=== PATIENT | female | born 1985 | race Caucasian/White ===

== ENCOUNTER 2020-10-03 11:34 | Outpatient (REF) | payer OTHER, SELFPAY ==
[2020-10-05 20:46] LABS: HPV mRNA E6/E7 rflx Not Detected (Not Detected)
== END 2020-10-03 11:35 | disposition home or self-care (01) ==
LOC: HO.LNP 11:34
PROVIDERS: Visit Provider Internal Medicine
DX: Z12.4 Encounter for screening for malignant neoplasm of cervix (principal); Z11.51 Encounter for screening for human papillomavirus (HPV)
CPT/HCPCS: 87624; 88142

== ENCOUNTER 2020-10-07 07:01 | Outpatient (REF) | payer OTHER, SELFPAY ==
[2020-10-07 11:18] LABS: MANUAL DIFF FLAG NO
[2020-10-07 11:29] LABS: Basophils Absolute Auto 0.1 X10*3/uL (0.0-0.2); Eosinophils Absolute Auto 0.2 X10*3/uL (0.0-0.4); Eosinophils Percent Auto 2.5 % (0-4); Hemoglobin 10.6 g/dl (12.0-16.0); Imm Gran Abs Auto 0.03 X10*3/uL (0.00-0.03); Imm Gran Pct Auto 0.4 % (0.0-0.4); Lymphocytes Absolute Auto 2.4 X10*3/uL (1.2-4.9); Lymphocytes Percent Auto 33.1 % (20-40); Mean Corpuscular HGB Conc 30.3 g/dl (31.0-35.0); Mean Corpuscular Volume 79.4 fL (80-98); Mean Platelet Volume 8.2 fL (9.4-12.3); Monocytes Absolute Auto 0.5 X10*3/uL (0.1-1.2); Monocytes Percent Auto 7.4 % (2-11); Neutrophils Percent Auto 55.6 % (45-73); Platelet Count 427 X10*3/uL (160-400); Red Blood Count 4.41 X10*6/uL (4.20-5.50); Red Cell Distribution Width 17.2 % (11.0-16.0); White Blood Count 7.1 X10*3/uL (4.8-10.8)
[2020-10-07 12:05] LABS: Cholesterol 174 mg/dL; Glucose Fasting 100 mg/dL (60-99); HDL Cholesterol 66 mg/dL; LDL Cholesterol Calculated 91 mg/dl; Triglycerides 86 mg/dL
[2020-10-07 12:07] LABS: TSH reflex Free T4 5.03 uIU/mL (0.32-4.0)
[2020-10-07 12:41] LABS: Free T4 (Free Thyroxine) 0.67 ng/dL (0.71-1.85)
== END 2020-10-07 07:02 | disposition home or self-care (01) ==
LOC: HO.HMGCLDS 07:01
PROVIDERS: PCP Internal Medicine; Visit Provider Internal Medicine
DX: Z00.00 Encounter for general adult medical examination without abnormal findings (principal); Z83.49 Family history of other endocrine, nutritional and metabolic diseases
CPT/HCPCS: 36415; 80061; 82947; 84439; 84443; 85025

== ENCOUNTER 2021-03-08 13:23 | Outpatient (REF) | payer OTHER, SELFPAY ==
[2021-03-08 16:33] LABS: MANUAL DIFF FLAG NO
[2021-03-08 16:45] LABS: Basophils Absolute Auto 0.1 X10*3/uL (0.0-0.2); Basophils Percent Auto 0.6 % (0-2); Eosinophils Absolute Auto 0.2 X10*3/uL (0.0-0.4); Eosinophils Percent Auto 1.8 % (0-4); Hematocrit 34.9 % (37-47); Hemoglobin 11.6 g/dl (12.0-16.0); Imm Gran Abs Auto 0.03 X10*3/uL (0.00-0.03); Imm Gran Pct Auto 0.3 % (0.0-0.4); Lymphocytes Absolute Auto 2.1 X10*3/uL (1.2-4.9); Lymphocytes Percent Auto 24.7 % (20-40); Mean Corpuscular HGB Conc 33.2 g/dl (31.0-35.0); Mean Corpuscular Hemoglobin 28.7 pg (27.0-33.0); Mean Corpuscular Volume 86.4 fL (80-98); Mean Platelet Volume 8.3 fL (9.4-12.3); Monocytes Absolute Auto 0.7 X10*3/uL (0.1-1.2); Monocytes Percent Auto 7.6 % (2-11); Neutrophils Absolute Auto 5.6 X10*3/uL (2.0-8.3); Platelet Count 391 X10*3/uL (160-400); Red Blood Count 4.04 X10*6/uL (4.20-5.50); Red Cell Distribution Width 14.5 % (11.0-16.0); White Blood Count 8.7 X10*3/uL (4.8-10.8)
[2021-03-08 17:06] LABS: Iron 49 mcg/dL (30-160); Percent Iron Saturation 13 % (15-50); Total Iron Binding Capacity 391 mcg/dL (228-428); Unsaturated Iron Binding 342 ug/dL
[2021-03-08 17:29] LABS: Ferritin 30 ng/mL (10-122); Free T4 (Free Thyroxine) 0.76 ng/dL (0.71-1.85); Thyroid Stimulating Hormone 6.29 uIU/mL (0.32-4.0)
[2021-03-09 17:35] LABS: Thyroid Peroxidase Antibodies 735 IU/mL (<9)
== END 2021-03-08 13:24 | disposition home or self-care (01) ==
LOC: HO.HMGCLDS 13:23
PROVIDERS: PCP Internal Medicine; Visit Provider Internal Medicine
DX: D50.9 Iron deficiency anemia, unspecified (principal); E03.9 Hypothyroidism, unspecified
CPT/HCPCS: 36415; 82728; 83540; 84439; 84443; 85025; 86376

== ENCOUNTER 2021-07-24 11:56 | Outpatient (REF) | payer OTHER, SELFPAY ==
[2021-07-24 13:41] LABS: MANUAL DIFF FLAG NO
[2021-07-24 13:45] LABS: Basophils Absolute Auto 0.1 X10*3/uL (0.0-0.2); Basophils Percent Auto 0.7 % (0-2); Eosinophils Absolute Auto 0.2 X10*3/uL (0.0-0.4); Eosinophils Percent Auto 3.1 % (0-4); Hematocrit 36.1 % (37.0-47.0); Hemoglobin 11.7 g/dl (12.0-16.0); Imm Gran Abs Auto 0.02 X10*3/uL (0.00-0.03); Imm Gran Pct Auto 0.3 % (0.0-0.4); Lymphocytes Absolute Auto 2.4 X10*3/uL (1.2-4.9); Lymphocytes Percent Auto 35.6 % (20-40); Mean Corpuscular HGB Conc 32.4 g/dl (31.0-35.0); Mean Corpuscular Hemoglobin 27.7 pg (27.0-33.0); Mean Corpuscular Volume 85.3 fL (80.0-98.0); Monocytes Absolute Auto 0.6 X10*3/uL (0.1-1.2); Neutrophils Absolute Auto 3.6 x10*3/uL (2.0-8.3); Neutrophils Percent Auto 52.3 % (45-73); Platelet Count 399 X10*3/uL (160-400); Red Blood Count 4.23 X10*6/uL (4.20-5.50); Red Cell Distribution Width 14.5 % (11.0-16.0); White Blood Count 6.9 X10*3/uL (4.8-10.8)
[2021-07-24 14:04] LABS: Iron 63 mcg/dL (30-160); Percent Iron Saturation 14 % (15-50); Total Iron Binding Capacity 436 mcg/dL (228-428); Unsaturated Iron Binding 373 ug/dL
[2021-07-24 14:25] LABS: Free T4 (Free Thyroxine) 0.84 ng/dL (0.71-1.85); Thyroid Stimulating Hormone 3.73 uIU/mL (0.32-4.0)
[2021-07-26 07:12] LABS: Thyroid Peroxidase Antibodies >900 IU/mL (<9)
== END 2021-07-24 11:57 | disposition home or self-care (01) ==
LOC: HO.HMGCLDS 11:56
PROVIDERS: Visit Provider Internal Medicine
DX: D50.9 Iron deficiency anemia, unspecified (principal); E03.9 Hypothyroidism, unspecified
CPT/HCPCS: 36415; 83540; 84439; 84443; 85025; 86376

== ENCOUNTER 2022-12-18 08:36 | Outpatient (REF) | payer OTHER, SELFPAY ==
[2022-12-18 11:27] LABS: MANUAL DIFF FLAG NO
[2022-12-18 11:39] LABS: Basophils Absolute Auto 0.1 X10*3/uL (0.0-0.2); Basophils Percent Auto 1.1 % (0-2); Eosinophils Absolute Auto 0.2 X10*3/uL (0.0-0.4); Eosinophils Percent Auto 3.6 % (0-4); Hematocrit 35.9 % (37.0-47.0); Hemoglobin 11.1 g/dl (12.0-16.0); Imm Gran Abs Auto 0.01 X10*3/uL (0.00-0.03); Imm Gran Pct Auto 0.2 % (0.0-0.4); Lymphocytes Percent Auto 30.9 % (20-40); Mean Corpuscular HGB Conc 30.9 g/dl (31.0-35.0); Mean Corpuscular Hemoglobin 24.7 pg (27.0-33.0); Mean Corpuscular Volume 79.8 fL (80.0-98.0); Monocytes Absolute Auto 0.4 X10*3/uL (0.1-1.2); Monocytes Percent Auto 6.5 % (2-11); Neutrophils Absolute Auto 3.8 x10*3/uL (2.0-8.3); Neutrophils Percent Auto 57.7 % (45-73); Platelet Count 432 X10*3/uL (160-400); Red Cell Distribution Width 15.9 % (11.0-16.0); White Blood Count 6.6 X10*3/uL (4.8-10.8)
[2022-12-18 12:08] LABS: Cholesterol 190 mg/dL; Glucose Fasting 95 mg/dL (60-99); HDL Cholesterol 57 mg/dL; Iron 34 mcg/dL (30-160); LDL Cholesterol Calculated 114 mg/dl; Percent Iron Saturation 9 % (15-50); Total Iron Binding Capacity 394 mcg/dL (228-428); Triglycerides 96 mg/dL; Unsaturated Iron Binding 360 ug/dL
[2022-12-21 11:34] LABS: Free T4 (Free Thyroxine) 0.84 ng/dL (0.71-1.85); Thyroid Stimulating Hormone 6.08 uIU/mL (0.32-4.0)
== END 2022-12-18 08:37 | disposition home or self-care (01) ==
LOC: HO.HMGCLDS 08:36
PROVIDERS: PCP Internal Medicine; Visit Provider Internal Medicine
DX: Z00.01 Encounter for general adult medical examination with abnormal findings (principal); D50.9 Iron deficiency anemia, unspecified; E03.9 Hypothyroidism, unspecified
CPT/HCPCS: 36415; 80061; 82947; 83540; 84439; 84443; 85025

== ENCOUNTER 2023-07-15 07:36 | Outpatient (REF) | payer OTHER, SELFPAY ==
[2023-07-15 11:41] LABS: MANUAL DIFF FLAG NO
[2023-07-15 11:56] LABS: Basophils Absolute Auto 0.1 X10*3/uL (0.0-0.2); Eosinophils Absolute Auto 0.3 X10*3/uL (0.0-0.4); Eosinophils Percent Auto 4.5 % (0-4); Hematocrit 35.7 % (37.0-47.0); Imm Gran Abs Auto 0.02 X10*3/uL (0.00-0.03); Imm Gran Pct Auto 0.3 % (0.0-0.4); Lymphocytes Absolute Auto 2.6 X10*3/uL (1.2-4.9); Lymphocytes Percent Auto 35.2 % (20-40); Mean Corpuscular HGB Conc 30.8 g/dl (31.0-35.0); Mean Corpuscular Hemoglobin 25.5 pg (27.0-33.0); Mean Corpuscular Volume 82.6 fL (80.0-98.0); Monocytes Absolute Auto 0.5 X10*3/uL (0.1-1.2); Monocytes Percent Auto 6.7 % (2-11); Neutrophils Absolute Auto 3.8 x10*3/uL (2.0-8.3); Neutrophils Percent Auto 52.3 % (45-73); Platelet Count 449 X10*3/uL (160-400); Red Blood Count 4.32 X10*6/uL (4.20-5.50); Red Cell Distribution Width 16.5 % (11.0-16.0); White Blood Count 7.3 X10*3/uL (4.8-10.8)
[2023-07-15 12:13] LABS: Iron 39 mcg/dL (30-160); Percent Iron Saturation 10 % (15-50); Total Iron Binding Capacity 381 mcg/dL (228-428); Unsaturated Iron Binding 342 ug/dL
[2023-07-15 12:33] LABS: Free T4 (Free Thyroxine) 0.72 ng/dL (0.71-1.85); Thyroid Stimulating Hormone 7.44 uIU/mL (0.32-4.0)
== END 2023-07-15 07:37 | disposition home or self-care (01) ==
LOC: HO.HMGCLDS 07:36
PROVIDERS: PCP Internal Medicine; Visit Provider Internal Medicine
DX: E03.9 Hypothyroidism, unspecified (principal); D50.9 Iron deficiency anemia, unspecified
CPT/HCPCS: 36415; 83540; 84439; 84443; 85025

== ENCOUNTER 2023-09-07 09:51 | Outpatient (AMB) | payer OTHER, SELFPAY ==
[2023-09-07 10:19] VITALS: BP 112/74; PULSE 120; TEMP 36.6; O2SAT 98; BMI 25.4
--- NOTE | 2023-09-07 10:19 | AM.OFFWIN_ITS ---
Intake Vital Signs 09/07/23 10:19 Height 5 ft 4 in Weight 148 lb BMI 25.4 BP 112/74 Blood Pressure Location Lt brachial Position Sitting Pulse 120 H Pulse Source Pulse Oximeter Temp 97.9 F Temp Source Oral Pulse Oximetry (%) 98 Oxygen Delivery Method Room Air Intake Visit Reasons: EP Sciatic pain Intake Note: pt is here for sciatic pain Patient Tobacco Use Status: Former Tobacco user Allergies amoxicillin Adverse Reaction (Verified 09/07/23 10:21) Rash Do you need a note to return to daycare/school/sports/work: Yes HPI HPI Comments History of Present Illness Details 38-year-old female history of sciatica u nder the treatment of chiropractor that presents for flare. Patient was recently seen and treated by a chiropractor 3 days prior and recommended that she receive a Medrol Dosepak to help with her symptom flares. [facility] Medical History (Updated 09/07/23 @ 16:11 by ADI Carmona) Generalized anxiety disorder History of herniated intervertebral disc Annual physical exam Rash and nonspecific skin eruption Hypochromic microcytic anemia Acquired hypothyroidism Family history of thyroid disease in mother Surgical History No pertinent past surgical history Family History Father History of hypertension Mother History of hypertension Hx of thyroid disease Mental health disorder Social History Housing: House Alcohol intake: current Patient Tobacco Use Status: Former Tobacco user Years Smoked: 2 yrs e-Cigarette/Vaping Use: Never Used Current occupational status: employed Cognitive needs: No Hearing needs: No Vision needs: No Physical Exam Vital Signs: Last Vital Signs Temp 97.9 F 09/07/23 10:19 Pulse 120 H 09/07/23 10:19 BP 112/74 09/07/23 10:19 Pulse Ox 98 09/07/23 10:19 Oxygen Delivery Method Room Air 09/07/23 10:19 BMI result Body Mass Index 25.4 Const General: cooperative, healthy appearing, no acute distress and alert Orientation/consciousness: patient oriented x3 Limitations: no limitations HEENT Head: Yes normal to inspection Ears: hearing grossly normal bilaterally General nose exam: Normal external nose present Resp Effort & Inspection: normal respiratory effort and able to speak in complete sentences Cardio Rate: regular rate Back/Spine/Pelvis Other: No midline tenderness to palpation Skin General skin exam: no rashes or lesions noted Neuro General: patient oriented x3 Extrem General: Yes normal to inspection Assessment & Plan Assessment & Plan (1) Sciatic leg pain: Code(s): M54.30 - Sciatica, unspecified side Plan: VSS. Exam patient presents alert and oriented no acute distress exam was otherwise unremarkable. Consult note were reviewed at this time I feel it reasonable to prescribe Medrol Dosepak as recommended by chiropractor will also send over Flexeril and lidocaine patches for spasming. Medications: New methylprednisolone (Medrol (Raul)) PO PER PKG DIR for 6 days 21 ea 0RF lidocaine 5% leave on most painful area for up to 12 hrs 1 patch topical DAILY 30 ea 0RF cyclobenzaprine 5 mg PO BEDTIME PRN 7 tabs 0RF muscle spasm Coding Level of Care Code Est Pt Level 3 (22651) Diagnoses Sciatic leg pain M54.30
== END 2023-09-07 11:06 | disposition home or self-care (01) ==
PROVIDERS: PCP Internal Medicine; Visit Provider Physician Assistant
DX: M54.30 Sciatica, unspecified side (principal)
CPT/HCPCS: 99051; 99213

== ENCOUNTER 2023-10-29 09:32 | Outpatient (REF) | payer OTHER, SELFPAY ==
[2023-10-29 10:16] LABS: MANUAL DIFF FLAG NO
[2023-10-29 10:32] LABS: Basophils Absolute Auto 0.1 X10*3/uL (0.0-0.2); Basophils Percent Auto 0.9 % (0-2); Eosinophils Absolute Auto 0.3 X10*3/uL (0.0-0.4); Eosinophils Percent Auto 3.5 % (0-4); Hematocrit 34.7 % (37.0-47.0); Hemoglobin 11.3 g/dl (12.0-16.0); Imm Gran Abs Auto 0.02 X10*3/uL (0.00-0.03); Imm Gran Pct Auto 0.3 % (0.0-0.4); Lymphocytes Absolute Auto 2.5 X10*3/uL (1.2-4.9); Mean Corpuscular HGB Conc 32.6 g/dl (31.0-35.0); Mean Corpuscular Hemoglobin 26.5 pg (27.0-33.0); Mean Corpuscular Volume 81.3 fL (80.0-98.0); Mean Platelet Volume 8.1 fL (9.4-12.3); Monocytes Absolute Auto 0.5 X10*3/uL (0.1-1.2); Neutrophils Absolute Auto 4.1 x10*3/uL (2.0-8.3); Neutrophils Percent Auto 54.3 % (45-73); Platelet Count 404 X10*3/uL (160-400); Red Blood Count 4.27 X10*6/uL (4.20-5.50); Red Cell Distribution Width 17.2 % (11.0-16.0); White Blood Count 7.5 X10*3/uL (4.8-10.8)
[2023-10-29 11:00] LABS: Iron 40 mcg/dL (30-160); Percent Iron Saturation 11 % (15-50); Total Iron Binding Capacity 378 mcg/dL (228-428); Unsaturated Iron Binding 338 ug/dL
[2023-10-29 11:16] LABS: Free T4 (Free Thyroxine) 0.75 ng/dL (0.71-1.85); Thyroid Stimulating Hormone 7.08 uIU/mL (0.32-4.0)
[2023-11-01 05:54] LABS: Thyroid Peroxidase Antibodies 495 IU/mL (<9)
== END 2023-10-29 09:33 | disposition home or self-care (01) ==
LOC: HO.HMGCLDS 09:32
PROVIDERS: PCP Internal Medicine; Visit Provider Internal Medicine
DX: D50.9 Iron deficiency anemia, unspecified (principal); E03.9 Hypothyroidism, unspecified
CPT/HCPCS: 36415; 83540; 84439; 84443; 85025; 86376

== ENCOUNTER 2023-11-01 11:49 | Outpatient (AMB) | payer OTHER, SELFPAY ==
--- NOTE | 2023-11-01 11:55 | MHC.PC.OV ---
Vital Signs 11/01/23 12:00 Height 5 ft 4 in Weight 150 lb BMI 25.7 BP 94/70 Blood Pressure Location Rt brachial Position Sitting Pulse 84 Pulse Source Pulse Oximeter Pulse Oximetry (%) 98 Oxygen Delivery Method Room Air Intake Visit Reasons: follow up Intake Note: Pt is here today for her lab f/u and request MRI of back Allergies amoxicillin Adverse Reaction (Verified 11/01/23 13:04) Rash Medication List - Last Reconciled 11/01/23 by Julissa Lazo MD ferrous fumarate 325 mg PO DAILY levothyroxine 62.5 mcg PO QAM lidocaine 5% 1 patch topical DAILY Tobacco use date assessed: 11/01/23 Dental Screening Dental Screen Date: 11/01/23 Did you have a dental visit in the last 12 months?: Yes Did you have a dental problem in the last 6 months where you did not have access to dental care?: No Was dental information given to patient?: Patient has dentist HPI follow up HPI Details 38-year-old lady here today for follow-up on her anemia and hypothyroidism, currently taking ferrous fumarate 325 mg daily but states that she frequently misses on her dose, as she gets constipated when taking it regularly . Recent labs showed presence still of anemia and low iron levels, and patient does complain of easy fatigability. Her latest TSH was elevated with a low normal free T4. Currently taking levothyroxine 50 mcg daily in a.m. She is also complaining of persistent pain in her left lower back, shooting down back of her leg up to knee. This has been present now for the last 6 months, with no history of trauma or strenuous exertion. She has seen physical therapy tried chiropractic treatment and has been trying to do yoga to help relieve the pain which has not been helpful.. Denies any accompanying urinary symptoms, no incontinence, no change in bowel habits, and no weakness in lower extremities. She reports that she has been diagnosed to have 3 disc herniation in her lower back approximately 10 years ago when she had an MRI done in [place]. [facility] Medical History Lumbar back pain with radiculopathy affecting left lower extremity Generalized anxiety disorder History of herniated intervertebral disc Annual physical exam Rash and nonspecific skin eruption Hypochromic microcytic anemia Acquired hypothyroidism Family history of thyroid disease in mother Surgical History No pertinent past surgical history Family History Father History of hypertension Mother History of hypertension Hx of thyroid disease Mental health disorder Social History Housing: House Alcohol intake: current Patient Tobacco Use Status: Former Tobacco user Years Smoked: 2 yrs e-Cigarette/Vaping Use: Never Used Current occupational status: employed Cognitive needs: No Hearing needs: No Vision needs: No Questionnaire PHQ-9 Over the last 2 weeks, how often have you been bothered by any of the following problems? 1. Little interest or pleasure in doing things: not at all 2. Feeling down, depressed, or hopeless: not at all 3. Trouble falling or staying asleep, or sleeping too much: not at all 4. Feeling tired or having little energy: not at all 5. Poor appetite or overeating: not at all 6. Feeling bad about yourself - or that you are a failure or have let yourself or your family down: not at all 7. Trouble concentrating on things, such as reading the newspaper or watching television: not at all 8. Moving or speaking so slowly that other people could have noticed. Or the opposite - being so fidgety or restless that you have been moving around a lot more than usual: not at all 9. Thoughts that you would be better off or of hurting yourself in some way: not at all Total score: 0 Depression Screening Interpretation: Negative Depression Screening Done: Yes 50904 - PHQ-9 Billing: Yes Source: Developed by Drs. Jules Quintero, Olinda Shaffer, Jose Echevarria and colleagues, with an educational raymond from [employer]. Thrive Questionnaire Date Thrive assessed: 11/01/23 I am a: Patient What is your living situation today?: I have a steady place to live Within the past 12 months, did the food you bought not last and you didn't have the money to get more?: Never true Within the past 12 months, did you worry whether your food would run out before you got money to buy more?: Never true Do you have trouble paying for medicines?: No Do you have trouble getting transportation to medical appointments?: No Do you have trouble paying your heating and electricity bill?: No Do you have trouble taking care of your child, family member or friend?: No Do you have trouble with day-to-day activities such as bathing, preparing meals, shopping, managing finances, etc.?: No Are you currently unemployed and looking for a job?: No Are you interested in more education?: No THRIVE Score: 0 AUDIT C Alcohol Use Questionnaire (AUDIT-C) 1. How often do you have a drink containing alcohol?: Monthly or less 2. How many drinks containing alcohol do you have on a typical day when you are drinking?: 1 or 2 3. How often do you have six or more drinks on one occasion?: Never Total Score: 1 LLUVIA-7 AMB Questionnaire LLUVIA-7 Date LLUVIA - 7 assessed: 11/01/23 Feeling nervous, anxious, or on edge: 1 = Several days Not being able to stop or control worryin = Several days Worrying too much about different things: 0 = Not at all Trouble relaxin = Several days Being so restless that it is hard to sit still: 1 = Several days Becoming easily annoyed or irritable: 0 = Not at all Feeling afraid as if something awful might happen: 0 = Not at all Total LLUVIA-7 score (0-4 normal; 5-9 mild; 10-14 moderate; 15-21 severe): 4 Source: Developed by Drs. Jules Quintero, Olinda Shaffer, Jose Echevarria and colleagues, with an educational raymond from [employer]. LLUVIA-7 Assessment Billing LLUVIA-7 Assessment Tool: LLUVIA-7 Assessment 31511 Review of Systems Const Reports as per HPI, Reports no additional complaints and Reports weight gain Eyes Reports no additional complaints ENT Reports no additional complaints Card Reports no additional complaints Resp Reports no additional complaints GI Reports no additional complaints Reports no additional complaints Musc Reports as per HPI Neuro Reports no additional complaints and Reports radicular pain Psych Reports no additional complaints Endo Reports no additional complaints Rico/Lymph Reports no additional complaints Aller/Immun Reports no additional complaints Physical exam (Primary Care) Vital Signs: Last Vital Signs Pulse 84 11/01/23 12:00 BP 94/70 11/01/23 12:00 Pulse Ox 98 11/01/23 12:00 Oxygen Delivery Method Room Air 11/01/23 12:00 BMI result Body Mass Index 25.7 Tobacco/Smoking Status: Tobacco use Status Tobacco use date assessed 11/01/23 11/01/23 12:03 Patient Tobacco Use Status Former Tobacco user 11/01/23 11:56 e-Cigarette/Vaping Use Never Used 11/01/23 11:56 PHQ-9: PHQ-9 Score PHQ-9: Total score 0 11/01/23 12:39 Depression Screening Interpretation: Negative Thrive Assessment: Date of Thrive Assessment Date Thrive assessed 11/01/23 11/01/23 12:03 Const Other: Alert oriented x3, no acute distress noted ambulatory normal gait Orientation/consciousness: patient oriented x3 [facility] General nose exam: Normal external nose present Face and sinus: Yes face symmetric Mouth: moist mucous membranes Neck Neck: Yes full ROM, Yes no lymphadenopathy and Yes supple Thyroid: Thyroid normal Resp Auscultation: clear to auscultation bilaterally Cardio Other: S1-S2 present regular rate and rhythm GI Other: Normal bowel sounds, soft, nontender, no mass palpated Back/Spine/Pelvis Other: Tenderness on palpation over paraspinal muscles at lumbar area on the left, negative straight leg raising sign bilateral Skin General skin exam: no rashes or lesions noted Neuro General: patient oriented x3, gait normal, tone normal, moves all extremities, no focal motor deficits and CN's II-XI intact bilaterally Extrem General: Yes full ROM, Yes no joint enlargement, Yes no pedal edema, Yes no calf tenderness and Yes normal gait Results Reviewed Results Reviewed: Name: Khushboo Hardy Age/Sex: 38/F : 1985 Unit#: [id number] Attend Dr: Julissa Lazo MD Re10/29/23 Status: DEP REF Location: [facility] [address] Disch: SPEC : [id number] GAYLA: 10/29/23 STATUS: COMP REQ : [id number] RECD: 10/29/[address]: Julissa Lazo MD COMP: 10/29/23 ENTERED: 10/29/[address]: ORDERED: CBC Auto Diff Test Result Flag Reference WBC 7.5 4.8-10.8 X10*3/uL RBC 4.27 4.20-5.50 X10*6/uL HGB 11.3 L 12.0-16.0 g/dl HCT 34.7 L 37.0-47.0 % MCV 81.3 80.0-98.0 fL MCH 26.5 L 27.0-33.0 pg MCHC 32.6 31.0-35.0 g/dl RDW 17.2 H 11.0-16.0 % PLT 404 H 160-400 X10*3/uL MPV 8.1 L 9.4-12.3 fL Neut Pct Auto 54.3 45-73 % ImGran Pct Auto 0.3 0.0-0.4 % Lymp Pct Auto 34.0 20-40 % Washburn Pct Auto 7.0 2-11 % Eos Pct Auto 3.5 0-4 % Baso Pct Auto 0.9 0-2 % NRBC Pct Auto 0.0 0.0-0.2 /100WBC ANC Neut Abs # 4.1 2.0-8.3 x10*3/uL ImGran Abs Auto 0.02 0.00-0.03 X10*3/uL Lymph Abs Auto 2.5 1.2-4.9 X10*3/uL Washburn Abs Auto 0.5 0.1-1.2 X10*3/uL Eos Abs Auto 0.3 0.0-0.4 X10*3/uL Baso Abs Auto 0.1 0.0-0.2 X10*3/uL NRBC Abs Auto 0.000 0.0-0.012 X10*3/uL Name: Khushboo Hardy Age/Sex: 38/F : 1985 Unit#: [id number] Attend Dr: Julissa Lazo MD Re10/29/23 Status: DEP REF Location: [facility] [address] Disch: SPEC : [id number] GAYLA: 10/29/23 STATUS: COMP REQ : [id number] RECD: 10/29/23-[address]: Julissa Lazo MD COMP: 10/29/23-1116 ENTERED: 10/29/23-[address] [facility] [address]: ORDERED: IRON PROF, Free T4, TSH Test Result Flag Reference Iron 40 30-160 mcg/dL TIBC 378 228-428 mcg/dL Saturation 11 L 15-50 % UIBC 338 ug/dL Free T4 0.75 0.71-1.85 ng/dL TSH 3rd Gen. 7.08 H 0.32-4.0 uIU/mL Note: A sustained TSH level above 2.5 uIU/mL may warrant further investigation. TSH 3rd Generation ([facility]) Assessment and Plan Assessment & Plan (1) Sciatic leg pain: Code(s): M54.30 - Sciatica, unspecified side Plan: Ordered MRI of lumbar spine without contrast (2) Lumbar back pain with radiculopathy affecting left lower extremity: Code(s): M54.16 - Radiculopathy, lumbar region Plan: Lumbar spine MRI ordered without contrast (3) Acquired hypothyroidism: Code(s): E03.9 - Hypothyroidism, unspecified Plan: Increased levothyroxine dose to 62.5 mcg to take 1 tablet in a.m. an hour before breakfast, recheck thyroid levels in 3 months (4) Hypochromic microcytic anemia: Code(s): D50.9 - Iron deficiency anemia, unspecified Plan: Reinforced importance of taking ferrous fumarate supplements daily, take it with vitamin-C or orange juice for better absorption, take prune juice or eat prunes, increase dietary fiber intake, and may take [id number] Colace to offset constipation from taking iron supplement. Repeat CBC and iron profile in 3 Orders: Orders MR lumbar spine wo con Today M54.16 - Radiculopathy, lumbar region, M54.30 - Sciatica, unspecified side Thyroid Stimulating Hormone 3 Months D50.9 - Iron deficiency anemia, unspecified, E03.9 - Hypothyroidism, unspecified, M54.16 - Radiculopathy, lumbar region, M54.30 - Sciatica, unspecified side Free T4 (Free Thyroxine) 3 Months D50.9 - Iron deficiency anemia, unspecified, E03.9 - Hypothyroidism, unspecified, M54.16 - Radiculopathy, lumbar region, M54.30 - Sciatica, unspecified side Complete Blood Count Auto Diff 3 Months D50.9 - Iron deficiency anemia, unspecified, E03.9 - Hypothyroidism, unspecified, M54.16 - Radiculopathy, lumbar region, M54.30 - Sciatica, unspecified side IRON PROFILE 3 Months D50.9 - Iron deficiency anemia, unspecified, E03.9 - Hypothyroidism, unspecified, M54.16 - Radiculopathy, lumbar region, M54.30 - Sciatica, unspecified side Medications: Changed From levothyroxine 50 mcg PO QAM 90 caps 0RF E03.9 - Hypothyroidism, unspecified To levothyroxine 62.5 mcg PO QAM 30 caps 2RF E03.9 - Hypothyroidism, unspecified Coding Level of Care Code Est Pt Level 4 (74592) Diagnoses Sciatic leg pain M54.30 Lumbar back pain with radiculopathy affecting left lower extremity M54.16 Acquired hypothyroidism E03.9 Hypochromic microcytic anemia D50.9 Additional Codes LLUVIA-7 Assessment Billing - LLUVIA-7 Assessment Tool: LLUVIA-7 Assessment 35613 ([id number])
[2023-11-01 12:00] VITALS: BP 94/70; PULSE 84; O2SAT 98; BMI 25.7
== END 2023-11-01 15:38 | disposition home or self-care (01) ==
PROVIDERS: PCP Internal Medicine; Visit Provider Internal Medicine
DX: M54.30 Sciatica, unspecified side (principal); M54.16 Radiculopathy, lumbar region; E03.9 Hypothyroidism, unspecified; D50.9 Iron deficiency anemia, unspecified
CPT/HCPCS: 99214

== ENCOUNTER 2023-12-03 07:10 | Outpatient (REF) | payer OTHER, SELFPAY ==
--- NOTE | ~2023-12-03 | MR_ITS ---
EXAMINATION: MR LUMBAR SPINE WITHOUT CONTRAST CLINICAL INFORMATION: Chronic left lower back pain radiating into lower extremity COMPARISON: None TECHNIQUE: MRI of the lumbar spine was obtained using routine sequences without contrast. FINDINGS: Normal lumbar lordosis is preserved. No significant spondylolisthesis. Vertebral body heights are maintained. There is no suspicious osseous lesion. There is disc desiccation and severe disc height loss at L4-L5 and moderate disc height loss at L5-S1. Type II Modic endplate changes at L4-L5 and trace type I Modic endplate change at L5-S1. Small endplate Schmorl's nodes at T11-T12 and along the L3 upper endplate. Level by level detail as follows: L1-L2: No spinal canal or neural foraminal stenosis. L2-L3: No spinal canal or neural foraminal stenosis. L3-L4: Trace annular disc bulge. No spinal canal or neural foraminal stenosis. L4-L5: Annular disc bulge with central disc protrusion/inferiorly migrated disc extrusion and suspected underlying annular fissure. Mild bilateral facet arthrosis. No spinal canal stenosis. Abutment of the traversing L5 nerve roots in the within the subarticular zones. Mild bilateral neural foraminal narrowing. L5-S1: Annular disc bulge with superimposed left subarticular disc protrusion with suspected annular fissure compressing the traversing left S1 nerve root. No overt spinal canal narrowing. Mild right greater than left neural foraminal narrowing with contact along the exiting right L5 nerve root. The conus medullaris terminates at the lower L2 level. Sacral Tarlov cysts. The distal spinal cord is normal in appearance. No epidural fluid collection, hematoma, or mass. No significant abnormalities of the paraspinal musculature. Limited evaluation of the intra-abdominal structures without significant abnormalities. The abdominal aorta is of normal contour and caliber. MR/MR lumbar spine wo con IMPRESSION: 1. At L5-S1, a left subarticular disc protrusion compresses the traversing left S1 nerve root. Mild right greater than left neural foraminal narrowing with contact along the exiting right L5 nerve root. 2. At L4-L5, central disc protrusion/inferiorly migrated disc extrusion with suspected underlying annular fissure abuts the traversing L5 nerve roots in the subarticular zones. Mild bilateral neural foraminal narrowing.
== END 2023-12-03 07:11 | disposition home or self-care (01) ==
LOC: HO.MRI 07:10
PROVIDERS: PCP Internal Medicine; Visit Provider Internal Medicine
DX: M54.30 Sciatica, unspecified side (principal); M54.16 Radiculopathy, lumbar region
CPT/HCPCS: 72148

== ENCOUNTER 2024-01-06 10:25 | Outpatient (AMB) | payer OTHER, SELFPAY ==
--- NOTE | 2024-01-06 10:38 | HO.SPINEOV ---
Intake Visit Reasons: Radiculopathy, lumbar region Intake Note: Ms. Hardy is here today c/o low back pain. Clinic Receptionist Required: No Allergies amoxicillin Adverse Reaction (Verified 01/06/24 10:38) Rash Assessment & Plan Assessment & Plan (1) Lumbar disc herniation with radiculopathy: Code(s): M51.16 - Intervertebral disc disorders with radiculopathy, lumbar region Category: Medical Plan Dear Dr Lazo, Thank you for referring Mrs Hardy to our office today. She is a very nice 38-year-old female presents to the office today for evaluation of a left-sided low back pain that radiates down into her left buttock region. It initially started in July and she was incapacitated for about 3-4 weeks. It started abruptly with no specific provocative event. At that time was radiating all the way down her leg. Currently though it is mainly left side of her low back going into her left buttock. If she does do something where she is straining or being very active it will radiate to the back of the leg and down into her calf. Standing, walking, sitting for any length of time as well as sleeping can be difficult. She takes ibuprofen and naproxen as needed. She did undergo physical therapy in the past for similar issues and has been doing the exercises religiously. The intensity of the pain that she originally had seems to have gotten better, but she is still dealing with these nagging ups and Downs with the pain. Some days are better than others but on her bad days it feels just as intense as it did initially. She did see a chiropractor when this 1st started as well and they were doing some therapy on her and that seemed to improve somewhat. She has had a similar event maybe 10 years ago or so. She had an MRI done at [facility] showing degenerative disc disease at L4-5 and what looks like an acute herniated disc at L5-S1 on the left. PMH: She is otherwise healthy, hypothyroidism and some slight anemia. No heart, lung, liver, kidney, abdominal, cancer bleeding disorders etc.. Social hx: She has not smoke cigarettes, occasionally will smoke marijuana, has not bought a glass of wine a night. Medications: Ibuprofen, levothyroxine Allergies: Amoxicillin gives her rash Physical exam: Gait, strength and reflexes are all intact Imaging review: Lumbar MRI done at [facility] reveals the patient has a moderate to severely degenerative disc at L4-5 with Modic endplate changes. On the left at L5-S1 there is a left paracentral disc herniation causing compression and posterior displacement of the left S1 nerve root. Incidentally noted deep sacral Tarlov cyst. Impression: 38-year-old female presents to the office today for evaluation of an abrupt onset of a left lower extremity radiculopathy that started in July. It was initially quite intense but seems to have backed off a little bit and she is resumed many of her usual activities but depending on the day depending on the activity she can experience the pain down into her left buttock and will also go down into her left leg into her calf again at times. It seems to be consistent with an acute herniated disc which we see on the left at L5-S1 compressing the left S1 nerve root. I explained to her that 90% of these disc herniations generally will resolve on their own if given time and it sounds like hers is resolving but she seems to have reached a plateau. We discussed all the treatment options, one of which would include a microdiskectomy. We also discussed the fact that she has a chronic degenerative disc at L4-5 and that surgery would be primarily to target the pain in her left low back and into her left buttock and leg and not the chronic backaches which she has had on and off through the years. Right now she is a bit tentative and hesitant about surgery which is reasonable. I told her would just be a matter of deciding if the pain is that bad if she wants to proceed I will review her films with Dr. Turner and we can schedule her for surgery if the symptoms do not improve. We did discuss risks, benefits as well as recovery of a lumbar microdiskectomy. Thank you for allowing us to care for your patient. The total time spent with this visit with this patient was 45 minutes reviewing history, physical exam, lumbar imaging review, and implementation of treatment plan or further diagnostic testing Harshad Turner MD,PhD [facility] Coding Level of Care Code New Pt Level 4 (11011) Diagnoses Lumbar disc herniation with radiculopathy M51.16
== END 2024-01-06 11:19 | disposition home or self-care (01) ==
PROVIDERS: PCP Internal Medicine; Referring Provider Internal Medicine; Visit Provider Physician Assistant
DX: M51.16 Intervertebral disc disorders with radiculopathy, lumbar region (principal)
CPT/HCPCS: 99204

== ENCOUNTER → 2024-01-06 10:25 | Outpatient (BNVA) | payer OTHER, SELFPAY | PROVIDERS: PCP Internal Medicine; Visit Provider Physician Assistant | DX: M51.16 Intervertebral disc disorders with radiculopathy, lumbar region (principal) | CPT/HCPCS: 99202 ==

== ENCOUNTER 2024-02-12 06:08 | Outpatient (REF) | payer OTHER, SELFPAY ==
[2024-02-12 11:29] LABS: MANUAL DIFF FLAG NO
[2024-02-12 11:31] LABS: Basophils Absolute Auto 0.1 X10*3/uL (0.0-0.2); Basophils Percent Auto 0.8 % (0-2); Eosinophils Absolute Auto 0.4 X10*3/uL (0.0-0.4); Eosinophils Percent Auto 5.9 % (0-4); Hematocrit 35.6 % (37.0-47.0); Hemoglobin 11.4 g/dl (12.0-16.0); Imm Gran Abs Auto 0.01 X10*3/uL (0.00-0.03); Imm Gran Pct Auto 0.2 % (0.0-0.4); Lymphocytes Absolute Auto 2.2 X10*3/uL (1.2-4.9); Lymphocytes Percent Auto 34.6 % (20-40); Mean Corpuscular Hemoglobin 26.1 pg (27.0-33.0); Mean Corpuscular Volume 81.7 fL (80.0-98.0); Mean Platelet Volume 7.8 fL (9.4-12.3); Monocytes Absolute Auto 0.5 X10*3/uL (0.1-1.2); Neutrophils Absolute Auto 3.2 x10*3/uL (2.0-8.3); Neutrophils Percent Auto 50.5 % (45-73); Platelet Count 417 X10*3/uL (160-400); Red Blood Count 4.36 X10*6/uL (4.20-5.50); Red Cell Distribution Width 15.8 % (11.0-16.0); White Blood Count 6.3 X10*3/uL (4.8-10.8)
[2024-02-12 12:54] LABS: Iron 35 mcg/dL (30-160); Percent Iron Saturation 10 % (15-50); Total Iron Binding Capacity 353 mcg/dL (228-428); Unsaturated Iron Binding 318 ug/dL
[2024-02-12 13:11] LABS: Free T4 (Free Thyroxine) 0.77 ng/dL (0.71-1.85); Thyroid Stimulating Hormone 3.97 uIU/mL (0.32-4.0)
== END 2024-02-12 06:09 | disposition home or self-care (01) ==
LOC: HO.HMGCLDS 06:08
PROVIDERS: PCP Internal Medicine; Visit Provider Internal Medicine
DX: M54.16 Radiculopathy, lumbar region (principal); M54.30 Sciatica, unspecified side; E03.9 Hypothyroidism, unspecified; D50.9 Iron deficiency anemia, unspecified
CPT/HCPCS: 36415; 83540; 84439; 84443; 85025

== ENCOUNTER 2024-02-27 14:35 | Outpatient (AMB) | payer OTHER, SELFPAY ==
--- NOTE | 2024-02-27 14:55 | MHC.PC.OV ---
Vital Signs 02/27/24 14:56 Height 5 ft 4 in Weight 155 lb BMI 26.6 BP 108/72 Blood Pressure Location Lt brachial Position Sitting Pulse 84 Pulse Source Pulse Oximeter Pulse Oximetry (%) 99 Oxygen Delivery Method Room Air Intake Visit Reasons: Follow-up anemia and thyroid after fasting labs Intake Note: Patient here f/u on labs. she would also like to talk about allergies that are affecting her breathing all summer. Allergies amoxicillin Adverse Reaction (Verified 02/27/24 14:56) Rash Medication List - Last Reconciled 02/27/24 by Julissa Lazo MD ferrous fumarate 325 mg PO DAILY levothyroxine 62.5 mcg PO QAM lidocaine 5% 1 patch topical DAILY Tobacco use date assessed: 11/01/23 Dental Screening Dental Screen Date: 11/01/23 HPI Follow-up anemia and thyroid after fasting labs HPI Details 38-year-old lady here today for follow-up on her iron deficiency anemia and hypothyroidism. She has been taking her thyroid medicine as directed but admits to taking her iron supplements irregularly. Latest labs showed thyroid levels within normal limits but patient still mildly anemic with low iron levels. Denies she fatigue, no chest pain or shortness of breath reported. 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 Has been sneezing all day, nose has been running watery drainage, and unable to breathe through her nose when sleeping. Has tried Claritin, Reena, Zyrtec all of which has not helped. She also has tried Flonase which has been helping but afraid to take it on a regular basis. [facility] Medical History Environmental and seasonal allergies Lumbar disc herniation with radiculopathy Lumbar back pain with radiculopathy affecting left lower extremity Generalized anxiety disorder History of herniated intervertebral disc Annual physical exam Rash and nonspecific skin eruption Hypochromic microcytic anemia Acquired hypothyroidism Family history of thyroid disease in mother Surgical History No pertinent past surgical history Family History Father History of hypertension Mother History of hypertension Hx of thyroid disease Mental health disorder Social History Housing: House Alcohol intake: current Patient Tobacco Use Status: Former Tobacco user Years Smoked: 2 yrs e-Cigarette/Vaping Use: Never Used Current occupational status: employed Cognitive needs: No Hearing needs: No Vision needs: No Questionnaire PHQ-9 Over the last 2 weeks, how often have you been bothered by any of the following problems? 1. Little interest or pleasure in doing things: several days 2. Feeling down, depressed, or hopeless: not at all 3. Trouble falling or staying asleep, or sleeping too much: more than half the days 4. Feeling tired or having little energy: more than half the days 5. Poor appetite or overeating: several days 6. Feeling bad about yourself - or that you are a failure or have let yourself or your family down: not at all 7. Trouble concentrating on things, such as reading the newspaper or watching television: not at all 8. Moving or speaking so slowly that other people could have noticed. Or the opposite - being so fidgety or restless that you have been moving around a lot more than usual: several days 9. Thoughts that you would be better off or of hurting yourself in some way: not at all Total score: 7 Depression Screening Interpretation: Negative Depression Screening Done: Yes 51036 - PHQ-9 Billing: Yes Source: Developed by Drs. Jules Quintero, Olinda Shaffer, Jose Echevarria and colleagues, with an educational raymond from [employer] Thrive Questionnaire Date Thrive assessed: 11/01/23 I am a: Patient What is your living situation today?: I have a steady place to live Within the past 12 months, did the food you bought not last and you didn't have the money to get more?: Never true Within the past 12 months, did you worry whether your food would run out before you got money to buy more?: Never true Do you have trouble paying for medicines?: No Do you have trouble getting transportation to medical appointments?: No Do you have trouble paying your heating and electricity bill?: No Do you have trouble taking care of your child, family member or friend?: No Do you have trouble with day-to-day activities such as bathing, preparing meals, shopping, managing finances, etc.?: No Are you currently unemployed and looking for a job?: No Are you interested in more education?: No Please select the resources that you would like help with: None Currently or been in a relationship where the following occur: No concerns reported THRIVE Score: 0 AUDIT C Alcohol Use Questionnaire (AUDIT-C) 1. How often do you have a drink containing alcohol?: 2-3 times a week 2. How many drinks containing alcohol do you have on a typical day when you are drinking?: 1 or 2 3. How often do you have six or more drinks on one occasion?: Less than monthly Total Score: 4 LLUVIA-7 AMB Questionnaire LLUVIA-7 Date LLUVIA - 7 assessed: 11/01/23 Feeling nervous, anxious, or on edge: 1 = Several days Not being able to stop or control worryin = Several days Worrying too much about different things: 1 = Several days Trouble relaxin = Several days Being so restless that it is hard to sit still: 1 = Several days Becoming easily annoyed or irritable: 1 = Several days Feeling afraid as if something awful might happen: 1 = Several days Total LLUVIA-7 score (0-4 normal; 5-9 mild; 10-14 moderate; 15-21 severe): 7 Source: Developed by Drs. Jules Quintero, Olinda Shaffer, Jose Echevarria and colleagues, with an educational raymond from [employer]. Review of Systems Const Denies body aches, Denies chills, Reports daytime sleepiness, Reports fatigue, Denies fever(s), Denies frequent falls, Denies headache(s), Reports malaise and Reports poor appetite Eyes Reports no additional complaints ENT Reports as per HPI and Denies headache(s) Card Reports no additional complaints, Denies chest pain, Denies edema, Denies irregular heart rhythm and Denies palpitations Neuro Denies frequent falls and Denies headache(s) Endo Reports fatigue and Denies palpitations Physical exam (Primary Care) Vital Signs: Last Vital Signs Pulse 84 02/27/24 14:56 BP 108/72 02/27/24 14:56 Pulse Ox 99 02/27/24 14:56 Oxygen Delivery Method Room Air 02/27/24 14:56 BMI result Body Mass Index 26.6 Tobacco/Smoking Status: Tobacco use Status Tobacco use date assessed 11/01/23 02/27/24 14:58 Patient Tobacco Use Status Former Tobacco user 02/27/24 14:58 e-Cigarette/Vaping Use Never Used 02/27/24 14:58 PHQ-9: PHQ-9 Score PHQ-9: Total score 10 02/27/24 14:58 Depression Screening Interpretation: Negative Thrive Assessment: Date of Thrive Assessment Date Thrive assessed 11/01/23 02/27/24 14:58 Currently or been in a relationship where the following occur: No concerns reported Const Other: Alert oriented x3, no acute distress noted ambulatory normal gait Orientation/consciousness: patient oriented x3 HENMT Other: Swollen inferior nasal turbinates bilaterally with clear nasal drainage present. No sinus tenderness on palpation Eyes General: appearance normal, both eyes and all related structures Neck Neck: Yes full ROM and Yes no lymphadenopathy Resp Auscultation: clear to auscultation bilaterally GI Other: Normal bowel sounds, soft, nontender with no mass palpated General: Yes no CVA tenderness Back/Spine/Pelvis Back: no CVA tenderness and No back tenderness Skin General skin exam: no rashes or lesions noted Neuro General: patient oriented x3, tone normal, moves all extremities, Normal light touch and pain sensation, no focal motor deficits and CN's II-XI intact bilaterally Results Reviewed Results Reviewed: Name: Khushboo Hardy Age/Sex: 38/F : 1985 Unit#: [id number] Attend Dr: Julissa Lazo MD Re02/12/24 Status: DEP REF Location: [facility] Disch: SPEC : [id number] GAYLA: 02/12/24 STATUS: COMP REQ : [id number] RECD: 02/12/[address]: Julissa Lazo MD COMP: 02/12/24 ENTERED: 02/12/[address] [facility] [address]: ORDERED: CBC Auto Diff Test Result Flag Reference WBC 6.3 4.8-10.8 X10*3/uL RBC 4.36 4.20-5.50 X10*6/uL HGB 11.4 L 12.0-16.0 g/dl HCT 35.6 L 37.0-47.0 % MCV 81.7 80.0-98.0 fL MCH 26.1 L 27.0-33.0 pg MCHC 32.0 31.0-35.0 g/dl RDW 15.8 11.0-16.0 % PLT 417 H 160-400 X10*3/uL MPV 7.8 L 9.4-12.3 fL Neut Pct Auto 50.5 45-73 % ImGran Pct Auto 0.2 0.0-0.4 % Lymp Pct Auto 34.6 20-40 % [place] Pct Auto 8.0 2-11 % Eos Pct Auto 5.9 H 0-4 % Baso Pct Auto 0.8 0-2 % NRBC Pct Auto 0.0 0.0-0.2 /100WBC ANC Neut Abs # 3.2 2.0-8.3 x10*3/uL ImGran Abs Auto 0.01 0.00-0.03 X10*3/uL Lymph Abs Auto 2.2 1.2-4.9 X10*3/uL [place] Abs Auto 0.5 0.1-1.2 X10*3/uL Eos Abs Auto 0.4 0.0-0.4 X10*3/uL Baso Abs Auto 0.1 0.0-0.2 X10*3/uL NRBC Abs Auto 0.000 0.0-0.012 X10*3/uL Name: Khushboo Hardy Age/Sex: 38/F : 1985 Unit#: [id number] Attend Dr: Julissa Lazo MD Re02/12/24 Status: DEP [facility] Disch: SPEC : [id number] GAYLA: 02/12/24-611 STATUS: COMP REQ : [id number] RECD: 02/12/24-[address]: Julissa Lazo MD COMP: 02/12/24-1310 ENTERED: 02/12/24-[address]: ORDERED: IRON PROF, Free T4, TSH Test Result Flag Reference Iron 35 30-160 mcg/dL TIBC 353 228-428 mcg/dL Saturation 10 L 15-50 % UIBC 318 ug/dL Free T4 0.77 0.71-1.85 ng/dL TSH 3rd Gen. 3.97 0.32-4.0 uIU/mL Note: A sustained TSH level above 2.5 uIU/mL may warrant further investigation. Assessment and Plan Assessment & Plan (1) Environmental and seasonal allergies: Code(s): J30.89 - Other allergic rhinitis Plan: Prescription sent for as a lasting nasal spray, may try 1 or 2 sprays daily and combined this with Flonase nasal spray 1 spray once a day. Restarted on montelukast 10 mg per tablet taken 1 tablet in a.m., may try taking Xyzal for allergy symptoms. If no improvement, will refer to [facility] for further evaluation management Medications: New montelukast 10 mg PO DAILY 90 tabs 2RF J30.89 - Other allergic rhinitis azelastine administer into each nostril 2 sprays intranasal BID 30 mL 1RF Coding Level of Care Code Est Pt Level 4 (72770) Diagnoses Environmental and seasonal allergies J30.89
[2024-02-27 14:56] VITALS: BP 108/72; PULSE 84; O2SAT 99; BMI 26.6
== END 2024-02-27 15:19 | disposition home or self-care (01) ==
PROVIDERS: PCP Internal Medicine; Visit Provider Internal Medicine
DX: J30.89 Other allergic rhinitis (principal)
CPT/HCPCS: 99214

== ENCOUNTER 2024-11-12 08:51 | Outpatient (REF) | payer OTHER, SELFPAY ==
[2024-11-12 13:04] LABS: MANUAL DIFF FLAG NO
[2024-11-12 13:08] LABS: Basophils Absolute Auto 0.1 X10*3/uL (0.0-0.2); Basophils Percent Auto 1.1 % (0-2); Eosinophils Absolute Auto 0.3 X10*3/uL (0.0-0.4); Eosinophils Percent Auto 4.7 % (0-4); Hematocrit 35.6 % (37.0-47.0); Hemoglobin 11.4 g/dl (12.0-16.0); Imm Gran Abs Auto 0.01 X10*3/uL (0.00-0.03); Imm Gran Pct Auto 0.1 % (0.0-0.4); Lymphocytes Absolute Auto 2.9 X10*3/uL (1.2-4.9); Lymphocytes Percent Auto 39.8 % (20-40); Mean Corpuscular Hemoglobin 26.8 pg (27.0-33.0); Mean Corpuscular Volume 83.6 fL (80.0-98.0); Mean Platelet Volume 7.8 fL (9.4-12.3); Monocytes Absolute Auto 0.5 X10*3/uL (0.1-1.2); Monocytes Percent Auto 6.9 % (2-11); Neutrophils Absolute Auto 3.5 x10*3/uL (2.0-8.3); Neutrophils Percent Auto 47.4 % (45-73); Platelet Count 478 X10*3/uL (160-400); Red Blood Count 4.26 X10*6/uL (4.20-5.50); Red Cell Distribution Width 15.9 % (11.0-16.0); White Blood Count 7.3 X10*3/uL (4.8-10.8)
[2024-11-12 13:34] LABS: Alanine Aminotransferase 28 U/L (0-31); Anion Gap 11 (12-20); Aspartate Amino Transferase 26 U/L (5-31); Blood Urea Nitrogen 11 mg/dL (9-16); Calcium 9.3 mg/dL (8.4-10.2); Carbon Dioxide 26 mmol/L (22-29); Chloride 108 mmol/L (96-108); Cholesterol 198 mg/dL (<200); Estimated Glomerular Filt Rate > 60; Glucose Fasting 85 mg/dL (60-99); HDL Cholesterol 54 mg/dL (>40); Iron 44 mcg/dL (30-160); LDL Cholesterol Calculated 122 mg/dL (<100); Percent Iron Saturation 12 % (15-50); Potassium 3.9 mmol/L (3.3-5.1); Sodium 141 mmol/L (135-145); Total Iron Binding Capacity 372 mcg/dL (228-428); Triglycerides 113 mg/dL (<150); Unsaturated Iron Binding 328 ug/dL
[2024-11-12 13:44] LABS: Free T4 (Free Thyroxine) 0.87 ng/dL (0.71-1.85); Thyroid Stimulating Hormone 7.47 uIU/mL (0.32-4.0); Vitamin D 25-OH Total 62.4 ng/mL (>30)
[2024-11-13 17:29] LABS: Thyroid Peroxidase Antibodies >900 IU/mL (<9)
== END 2024-11-12 08:52 | disposition home or self-care (01) ==
LOC: HO.HMGCLDS 08:51
PROVIDERS: PCP Internal Medicine; Visit Provider Internal Medicine
DX: Z00.01 Encounter for general adult medical examination with abnormal findings (principal); Z23 Encounter for immunization; E03.9 Hypothyroidism, unspecified; D50.9 Iron deficiency anemia, unspecified; F41.1 Generalized anxiety disorder; M51.16 Intervertebral disc disorders with radiculopathy, lumbar region; J30.89 Other allergic rhinitis; N95.1 Menopausal and female climacteric states; Z71.89 Other specified counseling; Z80.3 Family history of malignant neoplasm of breast
CPT/HCPCS: 36415; 80048; 80061; 82306; 83540; 84439; 84443; 84450; 84460; 85025; 86376; 90471; 90715; 96127; 99497

== ENCOUNTER 2024-11-12 08:51 | Outpatient (AMB) | payer OTHER, SELFPAY ==
--- NOTE | 2024-11-12 09:01 | A.OFFPC_ITS ---
Vital Signs 11/12/24 09:03 Height 5 ft 4 in Weight 156 lb BMI 26.8 BP 110/80 Blood Pressure Location Rt brachial Position Sitting Pulse 79 Pulse Source Pulse Oximeter Temp 98.2 F Temp Source Oral Pulse Oximetry (%) 99 Oxygen Delivery Method Room Air Intake Visit Reasons: PE/Annual PE/Over due since 11/2023 DO not cx Intake Note: Pt is here today for her PE Is last menstrual period known: Yes Last menstrual period: 11/08/24 Allergies amoxicillin Adverse Reaction (Verified 11/12/24 09:02) Rash Medication List - Last Reconciled 11/12/24 by Julissa Lazo MD ferrous fumarate 325 mg PO DAILY levothyroxine 62.5 mcg PO QAM lidocaine 5% 1 patch topical DAILY montelukast 10 mg PO DAILY Tobacco use date assessed: 11/12/24 Dental Screening Dental Screen Date: 11/12/24 Did you have a dental visit in the last 12 months?: Yes Did you have a dental problem in the last 6 months where you did not have access to dental care?: No Was dental information given to patient?: Patient has dentist [facility] Medical History (Updated 11/12/24 @ 09:37 by Julissa Lazo MD) Perimenopause Family history of breast cancer in mother Environmental and seasonal allergies Lumbar disc herniation with radiculopathy Lumbar back pain with radiculopathy affecting left lower extremity Generalized anxiety disorder History of herniated intervertebral disc Annual physical exam Rash and nonspecific skin eruption Hypochromic microcytic anemia Acquired hypothyroidism Family history of thyroid disease in mother Surgical History No pertinent past surgical history Family History Father History of hypertension Mother History of hypertension Hx of thyroid disease Mental health disorder Social History Housing: House Alcohol intake: current Patient Tobacco Use Status: Former Tobacco user Years Smoked: 2 yrs e-Cigarette/Vaping Use: Never Used Current occupational status: employed Cognitive needs: No Hearing needs: No Vision needs: No Female Reproductive History Menstrual Date of last menstrual period: 11/08/24 Questionnaire PHQ-9 Over the last 2 weeks, how often have you been bothered by any of the following problems? 1. Little interest or pleasure in doing things: several days 2. Feeling down, depressed, or hopeless: several days 3. Trouble falling or staying asleep, or sleeping too much: several days 4. Feeling tired or having little energy: several days 5. Poor appetite or overeating: several days 6. Feeling bad about yourself - or that you are a failure or have let yourself or your family down: several days 7. Trouble concentrating on things, such as reading the newspaper or watching television: several days 8. Moving or speaking so slowly that other people could have noticed. Or the o pposite - being so fidgety or restless that you have been moving around a lot more than usual: several days 9. Thoughts that you would be better off or of hurting yourself in some way: not at all Total score: 8 Source: Developed by Drs. Jules Quintero, Olinda Shaffer, Jose Echevarria and colleagues, with an educational raymond from [employer]. Thrive Questionnaire Date Thrive assessed: 11/11/24 I am a: Patient What is your living situation today?: I have a steady place to live Within the past 12 months, did the food you bought not last and you didn't have the money to get more?: Never true Within the past 12 months, did you worry whether your food would run out before you got money to buy more?: Never true Do you have trouble paying for medicines?: No Do you have trouble getting transportation to medical appointments?: No Do you have trouble paying your heating and electricity bill?: No Do you have trouble taking care of your child, family member or friend?: No Do you have trouble with day-to-day activities such as bathing, preparing meals, shopping, managing finances, etc.?: No Are you currently unemployed and looking for a job?: No Are you interested in more education?: No Please select the resources that you would like help with: None Currently or been in a relationship where the following occur: No concerns reported THRIVE Score: 0 AUDIT C Alcohol Use Questionnaire (AUDIT-C) 1. How often do you have a drink containing alcohol?: 2-4 times a month 2. How many drinks containing alcohol do you have on a typical day when you are drinking?: 3 or 4 3. How often do you have six or more drinks on one occasion?: Less than monthly Total Score: 4 LLUVIA-7 AMB Questionnaire LLUVIA-7 Date LLUVIA - 7 assessed: 11/01/23 Feeling nervous, anxious, or on edge: 1 = Several days Not being able to stop or control worryin = Several days Worrying too much about different things: 1 = Several days Trouble relaxin = Several days Being so restless that it is hard to sit still: 1 = Several days Becoming easily annoyed or irritable: 1 = Several days Feeling afraid as if something awful might happen: 1 = Several days Total LLUVIA-7 score (0-4 normal; 5-9 mild; 10-14 moderate; 15-21 severe): 7 Source: Developed by Drs. Jules Quintero, Olinda Shaffer, Jose Echevarria and colleagues, with an educational raymond from [employer]. Physical exam (Primary Care) Vital Signs: Last Vital Signs Temp 98.2 F 11/12/24 09:03 Pulse 79 11/12/24 09:03 BP 110/80 11/12/24 09:03 Pulse Ox 99 11/12/24 09:03 Oxygen Delivery Method Room Air 11/12/24 09:03 BMI result Body Mass Index 26.8 Tobacco/Smoking Status: Tobacco use Status Tobacco use date assessed 11/12/24 11/12/24 09:05 Patient Tobacco Use Status Former Tobacco user 11/12/24 09:05 e-Cigarette/Vaping Use Never Used 11/12/24 09:05 PHQ-9: PHQ-9 Score PHQ-9: Total score 8 11/12/24 09:41 Thrive Assessment: Date of Thrive Assessment Date Thrive assessed 11/11/24 11/12/24 09:05 Currently or been in a relationship where the following occur: No concerns reported Immunizations Boostrix Tdap 2.5 Lf unit-8 mcg-5 Lf/0.5 mL intramuscular syringe Performing Provider: Julissa Lazo MD Performing Location: [facility] Administered by: Matias Hunter CMA on 11/12/24 09:47 Dose Route Admin Location Dispensed Lot Number Expiration Date [facility] Guideman 0.5 mL IM Left Deltoid 0.5 mL [id number] 02/17/27 [id number] Squrl VIS Given Date VIS Provided VIS Publication Date 11/12/24 Single Vaccine 21 Eligibility Eligibility Date Funding Source Not [facility] Eligible 11/12/24 Private Coding Diagnoses Family history of breast cancer in mother Z80.3 Acquired hypothyroidism E03.9 Hypochromic microcytic anemia D50.9 Generalized anxiety disorder F41.1 Lumbar disc herniation with radiculopathy M51.16 Environmental and seasonal allergies J30.89 Encounter for counseling regarding advance directives Z71.89 Annual visit for general adult medical examination with abnormal findings Z00.01 Perimenopause N95.1 Assessment & Plan Assessment & Plan (1) Family history of breast cancer in mother: Code(s): Z80.3 - Family history of malignant neoplasm of breast Category: Medical (2) Acquired hypothyroidism: Code(s): E03.9 - Hypothyroidism, unspecified Category: Medical (3) Hypochromic microcytic anemia: Code(s): D50.9 - Iron deficiency anemia, unspecified Category: Medical (4) Generalized anxiety disorder: Code(s): F41.1 - Generalized anxiety disorder Category: Medical (5) Lumbar disc herniation with radiculopathy: Code(s): M51.16 - Intervertebral disc disorders with radiculopathy, lumbar region Category: Medical (6) Environmental and seasonal allergies: Code(s): J30.89 - Other allergic rhinitis Category: Medical (7) Encounter for counseling regarding advance directives: Code(s): Z71.89 - Other specified counseling (8) Annual visit for general adult medical examination with abnormal findings: Code(s): Z00.01 - Encounter for general adult medical examination with abnormal findings (9) Perimenopause: Code(s): N95.1 - Menopausal and female climacteric states Category: Medical Orders: Orders IRON PROFILE Today D50.9 - Iron deficiency anemia, unspecified, E03.9 - Hypothyroidism, unspecified, F41.1 - Generalized anxiety disorder, J30.89 - Other allergic rhinitis, M51.16 - Intervertebral disc disorders with radiculopathy, lumbar region, N95.1 - Menopausal and female climacteric states, Z00.01 - Encounter for general adult medical examination with abnormal findings, Z71.89 - Other specified counseling Free T4 (Free Thyroxine) Today D50.9 - Iron deficiency anemia, unspecified, E03.9 - Hypothyroidism, unspecified, F41.1 - Generalized anxiety disorder, J30.89 - Other allergic rhinitis, M51.16 - Intervertebral disc disorders with radiculopathy, lumbar region, N95.1 - Menopausal and female climacteric states, Z00.01 - Encounter for general adult medical examination with abnormal findings, Z71.89 - Other specified counseling Basic Metabolic Panel Fasting Today D50.9 - Iron deficiency anemia, unspecified, E03.9 - Hypothyroidism, unspecified, F41.1 - Generalized anxiety disorder, J30.89 - Other allergic rhinitis, M51.16 - Intervertebral disc disorders with radiculopathy, lumbar region, N95.1 - Menopausal and female climacteric states, Z00.01 - Encounter for general adult medical examination with abnormal findings, Z71.89 - Other specified counseling Thyroid Peroxidase Antibodies Today E03.9 - Hypothyroidism, unspecified TDaP Immunization Today Z23 - Encounter for immunization MM tomosynthesis screening BI Today Z12.31 - Encounter for screening mammogram for malignant neoplasm of breast, Z80.3 - Family history of malignant neoplasm of breast Complete Blood Count Auto Diff Today D50.9 - Iron deficiency anemia, unspecified, E03.9 - Hypothyroidism, unspecified, F41.1 - Generalized anxiety disorder, J30.89 - Other allergic rhinitis, M51.16 - Intervertebral disc disorders with radiculopathy, lumbar region, N95.1 - Menopausal and female climacteric states, Z00.01 - Encounter for general adult medical examination with abnormal findings, Z71.89 - Other specified counseling Lipid Panel Today D50.9 - Iron deficiency anemia, unspecified, E03.9 - Hypothyroidism, unspecified, F41.1 - Generalized anxiety disorder, J30.89 - Othe r allergic rhinitis, M51.16 - Intervertebral disc disorders with radiculopathy, lumbar region, N95.1 - Menopausal and female climacteric states, Z00.01 - Encounter for general adult medical examination with abnormal findings, Z71.89 - Other specified counseling Thyroid Stimulating Hormone Today D50.9 - Iron deficiency anemia, unspecified, E03.9 - Hypothyroidism, unspecified, F41.1 - Generalized anxiety disorder, J30.89 - Other allergic rhinitis, M51.16 - Intervertebral disc disorders with radiculopathy, lumbar region, N95.1 - Menopausal and female climacteric states, Z00.01 - Encounter for general adult medical examination with abnormal findings, Z71.89 - Other specified counseling Vitamin D 25-OH Total Today D50.9 - Iron deficiency anemia, unspecified, E03.9 - Hypothyroidism, unspecified, F41.1 - Generalized anxiety disorder, J30.89 - Other allergic rhinitis, M51.16 - Intervertebral disc disorders with radiculopathy, lumbar region, N95.1 - Menopausal and female climacteric states, Z00.01 - Encounter for general adult medical examination with abnormal findings, Z71.89 - Other specified counseling Alanine Aminotransferase Today D50.9 - Iron deficiency anemia, unspecified, E03.9 - Hypothyroidism, unspecified, F41.1 - Generalized anxiety disorder, J30.89 - Other allergic rhinitis, M51.16 - Intervertebral disc disorders with radiculopathy, lumbar region, N95.1 - Menopausal and female climacteric states, Z00.01 - Encounter for general adult medical examination with abnormal findings, Z71.89 - Other specified counseling Aspartate Amino Transferase Today D50.9 - Iron deficiency anemia, unspecified, E03.9 - Hypothyroidism, unspecified, F41.1 - Generalized anxiety disorder, J30.89 - Other allergic rhinitis, M51.16 - Intervertebral disc disorders with radiculopathy, lumbar region, N95.1 - Menopausal and female climacteric states, Z00.01 - Encounter for general adult medical examination with abnormal findings, Z71.89 - Other specified counseling Medications: New Boostrix Tdap (diphth,pertus(acell),tetanus) 0.5 mL IM ONCE 0.5 mL 0RF NS Z23 - Encounter for immunization
[2024-11-12 09:03] VITALS: BP 110/80; PULSE 79; TEMP 36.8; O2SAT 99; BMI 26.8
== END 2024-11-12 09:49 | disposition home or self-care (01) ==
LOC: HO.HMCC 08:52
PROVIDERS: PCP Internal Medicine; Visit Provider Internal Medicine
DX: Z23 Encounter for immunization (principal)

== ENCOUNTER 2025-02-02 08:32 | Outpatient (REF) | payer OTHER, SELFPAY ==
--- NOTE | ~2025-02-02 | MM_ITS ---
EXAMINATION: MM SCREENING DIGITAL BREAST TOMOSYNTHESIS, BILATERAL CLINICAL INFORMATION: Screening. Asymptomatic. Family history of breast cancer including mother at age 40. COMPARISON: Mammography: Baseline. TECHNIQUE: Digital breast mammography with tomosynthesis is performed in both the craniocaudal and mediolateral oblique views along with computer-aided detection (CAD). FINDINGS: The breasts are heterogeneously dense, which may obscure small masses (ACR BI-RADS breast composition Category c). Left: There are no significant masses, abnormal calcifications, or other abnormalities. Right: Grouped calcifications in the superior breast posterior depth on MLO view localizing centrally but not seen on CC view. No suspicious masses or other abnormal findings. MM/MM tomosynthesis screening BI IMPRESSION: Additional imaging is recommended ASSESSMENT: BI-RADS BI-RADS 0 - Incomplete: Needs additional Imaging. RECOMMENDATION: 1. Additional views of the right breast. 2. Targeted ultrasound if warranted after review of the additional views. 3. Radiology department staff will contact the patient for additional imaging. Patient has a strong family history of breast cancer including mother at age 40. Breast MRI yearly screening surveillance could be considered for further evaluation. Breast MRI would need to be ordered by the patient's providing clinician. Additional Imaging required This examination should not preclude the clinical evaluation of a suspicious palpable abnormality. This patient's information was entered into a reminder system with a target due date for their next mammogram. Electronically signed by: Martha Pedersen DO 02/02/2025 10:45 AM EDT
[2025-02-02 10:00] LABS: MANUAL DIFF FLAG NO
[2025-02-02 10:21] LABS: Hematocrit 34.1 % (37.0-47.0); Hemoglobin 10.9 g/dl (12.0-16.0); Imm Gran Abs Auto 0.02 X10*3/uL (0.00-0.03); Imm Gran Pct Auto 0.3 % (0.0-0.4); Lymphocytes Absolute Auto 2.1 X10*3/uL (1.2-4.9); Mean Corpuscular HGB Conc 32.0 g/dl (31.0-35.0); Mean Corpuscular Hemoglobin 26.6 pg (27.0-33.0); Mean Corpuscular Volume 83.2 fL (80.0-98.0); NRBC Abs Auto 0.000 X10*3/uL (0.0-0.012); NRBC Pct Auto 0.0 /100WBC (0.0-0.2); Platelet Count 428 X10*3/uL (160-400); Red Blood Count 4.10 X10*6/uL (4.20-5.50); White Blood Count 6.2 X10*3/uL (4.8-10.8)
[2025-02-02 10:47] LABS: Free T4 (Free Thyroxine) 0.86 ng/dL (0.71-1.85); Iron 29 mcg/dL (30-160); Percent Iron Saturation 8 % (15-50); Thyroid Stimulating Hormone 5.96 uIU/mL (0.32-4.0); Total Iron Binding Capacity 362 mcg/dL (228-428); Unsaturated Iron Binding 333 ug/dL
== END 2025-02-02 08:33 | disposition home or self-care (01) ==
LOC: HO.MAMMO 08:32
PROVIDERS: PCP Internal Medicine; Visit Provider Internal Medicine
DX: Z12.31 Encounter for screening mammogram for malignant neoplasm of breast (principal); Z01.84 Encounter for antibody response examination; E03.9 Hypothyroidism, unspecified; D50.9 Iron deficiency anemia, unspecified; Z80.3 Family history of malignant neoplasm of breast
CPT/HCPCS: 36415; 77063; 77067; 83540; 84439; 84443; 85025; 86376

== ENCOUNTER → 2025-02-02 10:00 | Outpatient (BNV) | payer OTHER, SELFPAY | PROVIDERS: PCP Internal Medicine; Visit Provider Internal Medicine | DX: Z12.31 Encounter for screening mammogram for malignant neoplasm of breast (principal) | CPT/HCPCS: 77063; 77067 ==

== ENCOUNTER 2025-02-08 10:26 | Outpatient (REF) | payer OTHER, SELFPAY ==
--- NOTE | ~2025-02-08 | MM_ITS ---
EXAMINATION: MM DIAGNOSTIC DIGITAL BREAST TOMOSYNTHESIS, RIGHT CLINICAL INFORMATION: Callback from screening for right breast calcifications seen in the superior breast posterior depth on the MLO view. COMPARISON: February 02, 2025 TECHNIQUE: Digital breast tomosynthesis is performed in both the craniocaudal and mediolateral oblique views along with computer-aided detection (CAD). Synthesized 2D images are generated from the tomosynthesis. Spot magnified compression views were also obtained. FINDINGS: BREAST COMPOSITION: The breasts are heterogeneously dense, which may obscure small masses (ACR BI-RADS breast composition Category c). RIGHT BREAST: Previously described grouped calcifications in the upper breast at approximately 10 cm from the nipple are better seen on today's spot magnified compression views. This is located in the medial breast on the cleavage view at about 9.5 cm from the nipple. Multiple attempts were performed to include these calcifications on the spot magnified compression views in CC plane, but only a very small portion could be included. MM/MM added views RT IMPRESSION: RIGHT BREAST: Grouped calcifications in the upper inner quadrant at posterior depth. Probably benign. A 6-month follow-up right breast mammogram is recommended. Note that given far posterior location, a stereotactic needle core biopsy may be difficult. ASSESSMENT: BI-RADS 3 - Probably benign finding(s) - 6 month follow-up suggested RECOMMENDATION: 6 Month F/U Results were provided to the patient at time of visit by the technologist. This patient's information was entered into a reminder system with a target due date for their next mammogram. Electronically signed by: Anil Ralph MD 02/08/2025 11:24 AM EDT
== END 2025-02-08 10:27 | disposition home or self-care (01) ==
LOC: HO.MAMMO 10:26
PROVIDERS: PCP Internal Medicine; Visit Provider Internal Medicine
DX: R92.1 Mammographic calcification found on diagnostic imaging of breast (principal)
CPT/HCPCS: 77065

== ENCOUNTER → 2025-02-08 10:30 | Outpatient (BNV) | payer OTHER, SELFPAY | PROVIDERS: PCP Internal Medicine; Visit Provider Radiology Body Imaging | DX: R92.1 Mammographic calcification found on diagnostic imaging of breast (principal) | CPT/HCPCS: 77061; 77065 ==

== ENCOUNTER 2025-03-04 08:19 | Outpatient (AMB) | payer OTHER, SELFPAY ==
--- NOTE | 2025-03-04 08:44 | A.OFFPC_ITS ---
Vital Signs 03/04/25 08:56 Height 5 ft 4 in Weight 154 lb BMI 26.4 BP 100/80 Blood Pressure Location Rt brachial Position Sitting Respiration 15 Pulse 85 Pulse Source Pulse Oximeter Temp 98.0 F Temp Source Oral Pulse Oximetry (%) 98 Oxygen Delivery Method Room Air Intake Visit Reasons: requesttreferral for audiogram Intake Note: Pt is here today to request a referral for audiogram Allergies amoxicillin Adverse Reaction (Verified 03/04/25 09:11) Rash Medication List - Last Reconciled 03/04/25 by Julissa Lazo MD ferrous fumarate 325 mg PO DAILY fexofenadine 180 mg PO DAILY levothyroxine 62.5 mcg PO QAM lidocaine 5% 1 patch topical DAILY Tobacco use date assessed: 03/04/25 Dental Screening Dental Screen Date: 03/04/25 Did you have a dental visit in the last 12 months?: Yes Did you have a dental problem in the last 6 months where you did not have access to dental care?: No Was dental information given to patient?: Patient has dentist HPI requesttreferral for audiogram HPI Details 39-year-old lady with past medical histo ry significant for iron- deficiency anemia and hypothyroidism, here today complaining of decreased hearing in both ears, accompanied by tinnitus mainly in right ear. This has been present now for the last several months and seems to be getting worse. Denies dizziness, headache, pain, discharge coming from ear.. Complains of recurrent nasal congestion and runny nose. Has tried several nvfx-vwa-hlvwioc antihistamines, bfsm-xkj-zypxkti steroid nasal spraysand Azelastine nasal spray which does not afford complete relief. Currently taking fexofenadine 180 mg daily, affording onlytemporary relief. [facility] Medical History (Updated 03/04/25 @ 09:27 by Julissa Lazo MD) Tinnitus Diminished hearing Perimenopause Family history of breast cancer in mother Environmental and seasonal allergies Lumbar disc herniation with radiculopathy Lumbar back pain with radiculopathy affecting left lower extremity Generalized anxiety disorder History of herniated intervertebral disc Annual physical exam Rash and nonspecific skin eruption Hypochromic microcytic anemia Acquired hypothyroidism Family history of thyroid disease in mother Surgical History No pertinent past surgical history Family History Father History of hypertension Mother History of hypertension Hx of thyroid disease Mental health disorder Social History Housing: House Alcohol intake: current Patient Tobacco Use Status: Former Tobacco user Years Smoked: 2 yrs e-Cigarette/Vaping Use: Never Used Current occupational status: employed Cognitive needs: No Hearing needs: No Vision needs: No Questionnaire PHQ-9 Over the last 2 weeks, how often have you been bothered by any of the following problems? 1. Little interest or pleasure in doing things: not at all 2. Feeling down, depressed, or hopeless: not at all 3. Trouble falling or staying asleep, or sleeping too much: several days 4. Feeling tired or having little energy: several days 5. Poor appetite or overeating: several days 6. Feeling bad about yourself - or that you are a failure or have let yourself or your family down: several days 7. Trouble concentrating on things, such as reading the newspaper or watching television: several days 8. Moving or speaking so slowly that other people could have noticed. Or the opposite - being so fidgety or restless that you have been moving around a lot more than usual: several days 9. Thoughts that you would be better off or of hurting yourself in some way: not at all Total score: 6 Depression Screening Interpretation: Negative Depression Screening Done: Yes Source: Developed by Drs. Jules Quintero, Olinda Shaffer, Jose Echevarria and colleagues, with an educational raymond from [employer] Thrive Questionnaire Date Thrive assessed: 11/11/24 I am a: Patient What is your living situation today?: I have a steady place to live Within the past 12 months, did the food you bought not last and you didn't have the money to get more?: Never true Within the past 12 months, did you worry whether your food would run out before you got money to buy more?: Never true Do you have trouble paying for medicines?: No Do you have trouble getting transportation to medical appointments?: No Do you have trouble paying your heating and electricity bill?: No Do you have trouble taking care of your child, family member or friend?: No Do you have trouble with day-to-day activities such as bathing, preparing meals, shopping, managing finances, etc.?: No Are you currently unemployed and looking for a job?: No Are you interested in more education?: No Please select the resources that you would like help with: None Currently or been in a relationship where the following occur: No concerns reported THRIVE Score: 0 AUDIT C Alcohol Use Questionnaire (AUDIT-C) 1. How often do you have a drink containing alcohol?: 2-4 times a month 2. How many drinks containing alcohol do you have on a typical day when you are drinking?: 3 or 4 3. How often do you have six or more drinks on one occasion?: Less than monthly Total Score: 4 LLUVIA-7 AMB Questionnaire LLUVIA-7 Date LLUVIA - 7 assessed: 11/01/23 Feeling nervous, anxious, or on edge: 1 = Several days Not being able to stop or control worryin = Several days Worrying too much about different things: 1 = Several days Trouble relaxin = Several days Being so restless that it is hard to sit still: 1 = Several days Becoming easily annoyed or irritable: 1 = Several days Feeling afraid as if something awful might happen: 1 = Several days Total LLUVIA-7 score (0-4 normal; 5-9 mild; 10-14 moderate; 15-21 severe): 7 Source: Developed by Drs. Jules Quintero, Olinda Shaffer, Jose Echevarria and colleagues, with an educational raymond from [employer] Review of Systems Const All systems reviewed & are unremarkable except as noted in HPI and below Physical exam (Primary Care) Vital Signs: Last Vital Signs Temp 98.0 F 03/04/25 08:56 Pulse 85 03/04/25 08:56 Resp 15 03/04/25 08:56 BP 100/80 03/04/25 08:56 Pulse Ox 98 03/04/25 08:56 Oxygen Delivery Method Room Air 03/04/25 08:56 BMI result Body Mass Index 26.4 Tobacco/Smoking Status: Tobacco use Status Tobacco use date assessed 03/04/25 03/04/25 09:03 Patient Tobacco Use Status Former Tobacco user 03/04/25 08:45 e-Cigarette/Vaping Use Never Used 03/04/25 08:45 PHQ-9: PHQ-9 Score PHQ-9: Total score 6 03/04/25 09:24 Depression Screening Interpretation: Negative Thrive Assessment: Date of Thrive Assessment Date Thrive assessed 11/11/24 03/04/25 08:45 Currently or been in a relationship where the following occur: No concerns reported Const General: no acute distress and alert Orientation/consciousness: patient oriented x3 HENMT Other: Able to hear whispered voice Ears: external ears normal, TM's normal bilaterally and EAC's normal Neck Neck: Yes full ROM, Yes no lymphadenopathy and Yes supple Resp Auscultation: clear to auscultation bilaterally and bronchovesicular breath sounds Cardio Other: S1-S2 present regular rate and rhythm Neuro General: patient oriented x3, gait normal, moves all extremities, no focal motor deficits and CN's II-XI intact bilaterally Results Reviewed Results Reviewed: carri: Khushboo Hardy Age/Sex: 39/F : 1985 Unit#: [id number] Attend Dr: Julissa Lazo MD Re02/02/25 Status: DEP REF Location: [facility] Disch: SPEC : [id number] GAYLA: 02/02/25 STATUS: COMP REQ : [id number] RECD: 02/02/25-[address]: Julissa Lazo MD COMP: 02/02/257 ENTERED: 02/02/25-[address]: ORDERED: IRON PROF, Free T4, TSH Test Result Flag Reference Iron 29 L 30-160 mcg/dL TIBC 362 228-428 mcg/dL Saturation 8 L 15-50 % UIBC 333 ug/dL Free T4 0.86 0.71-1.85 ng/dL TSH 3rd Gen. 5.96 H 0.32-4.0 uIU/mL Note: A sustained TSH level above 2.5 uIU/mL may joe ant further investigation. Name: Khushboo Hardy Age/Sex: 39/F : 1985 Unit#: [id number] Attend Dr: Julissa Lazo MD Re02/02/25 Status: DEP REF Location: [facility] Disch: SPEC : [id number] GAYLA: 02/02/25 STATUS: COMP REQ : [id number] RECD: 02/02/[address] [facility] [address]: Julissa Lazo MD COMP: 02/02/25 ENTERED: 02/02/[address]: ORDERED: CBC Auto Diff Test Result Flag Reference WBC 6.2 4.8-10.8 X10*3/uL RBC 4.10 L 4.20-5.50 X10*6/uL HGB 10.9 L 12.0-16.0 g/dl HCT 34.1 L 37.0-47.0 % MCV 83.2 80.0-98.0 fL MCH 26.6 L 27.0-33.0 pg MCHC 32.0 31.0-35.0 g/dl RDW 15.8 11.0-16.0 % PLT 428 H 160-400 X10*3/uL MPV 8.1 L 9.4-12.3 fL Neut Pct Auto 52.4 45-73 % ImGran Pct Auto 0.3 0.0-0.4 % Lymp Pct Auto 34.7 20-40 % Gulf Pct Auto 5.8 2-11 % Eos Pct Auto 5.5 H 0-4 % Baso Pct Auto 1.3 0-2 % NRBC Pct Auto 0.0 0.0-0.2 /100WBC ANC Neut Abs # 3.2 2.0-8.3 x10*3/uL ImGran Abs Auto 0.02 0.00-0.03 X10*3/uL Lymph Abs Auto 2.1 1.2-4.9 X10*3/uL Gulf Abs Auto 0.4 0.1-1.2 X10*3/uL Eos Abs Auto 0.3 0.0-0.4 X10*3/uL Baso Abs Auto 0.1 0.0-0.2 X10*3/uL NRBC Abs Auto 0.000 0.0-0.012 X10*3/uL Coding Level of Care Code Est Pt Level 4 (61017) Diagnoses Decreased hearing of both ears H91.93 Laterality: bilateral Acquired hypothyroidism E03.9 Hypochromic microcytic anemia D50.9 Assessment & Plan Assessment & Plan (1) Diminished hearing: Code(s): H91.90 - Unspecified hearing loss, unspecified ear Category: Medical Qualifiers: Laterality: bilateral Qualified Code(s): H91.93 - Unspecified hearing loss, bilateral Plan: Referred to speech and hearing center in [place], and ENT consult obtained (2) Acquired hypothyroidism: Code(s): E03.9 - Hypothyroidism, unspecified Category: Medical Plan: Latest thyroid levels are within normal limits, except for mildly elevated TSH level, patient currently asymptomatic, continued on current dose of levothyroxine 62.5 mcg taken once a day in a.m. (3) Hypochromic microcytic anemia: Code(s): D50.9 - Iron deficiency anemia, unspecified Category: Medical Plan: Continued on ferrous fumarate 325 mg tablet once a day Orders: Referrals Speech and Hearing Referral H91.90 - Unspecified hearing loss, unspecified ear, H93.19 - Tinnitus, unspecified ear Ear/Nose/Throat Referral H91.90 - Unspecified hearing loss, unspecified ear, H93.19 - Tinnitus, unspecified ear
[2025-03-04 08:56] VITALS: BP 100/80; PULSE 85; RESP 15; TEMP 36.7; O2SAT 98; BMI 26.4
== END 2025-03-04 10:33 | disposition home or self-care (01) ==
LOC: HO.HMCC 08:20
PROVIDERS: PCP Internal Medicine; Visit Provider Internal Medicine
DX: H91.93 Unspecified hearing loss, bilateral (principal); E03.9 Hypothyroidism, unspecified; D50.9 Iron deficiency anemia, unspecified

== ENCOUNTER → 2025-03-04 08:19 | Outpatient (BNVA) | payer OTHER, SELFPAY | PROVIDERS: PCP Internal Medicine; Visit Provider Internal Medicine | DX: D50.9 Iron deficiency anemia, unspecified (principal); E03.9 Hypothyroidism, unspecified; H91.93 Unspecified hearing loss, bilateral | CPT/HCPCS: 96127; 99212 ==